=== PATIENT | female | born 1955 | race Caucasian/White ===

== ENCOUNTER 2021-12-18 10:30 | Emergency (ER) | payer OTHER, SELFPAY ==
[2021-12-18 10:50] VITALS: BP 167/91; PULSE 78; RESP 16; TEMP 37.1; O2SAT 98
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
[2021-12-18] MEDS: SILVER SULFADIAZINE 1% CR 50 GM JAR (*BKC) 1 APPLIC TOPICAL (11:29)
== END 2021-12-18 11:34 | disposition home or self-care (01) ==
PROVIDERS: Emergency Provider Nurse Practitioner Family; PCP Family Medicine
DX: T23.161A Burn of first degree of back of right hand, initial encounter (principal); X15.0XXA Contact with hot stove (kitchen), initial encounter; E78.00 Pure hypercholesterolemia, unspecified; F32.A Depression, unspecified
CPT/HCPCS: 99213; A9270; G0463